=== PATIENT | female | born 1950 | race Caucasian/White ===

== ENCOUNTER 2021-02-22 06:29 | Inpatient (IN) | payer MEDICARE, BC ==
[2021-02-22] MEDS ORDERED: Furosemide 40 MG/4 ML VIAL ONE (06:46)
[2021-02-22 07:37] LABS: #Basophils 0.1 10x3/uL (0.0-0.2); #Eosinphils 0.3 10x3/uL (0.0-0.5); #Monocytes 0.4 10x3/uL (0.0-1.1); #Neutrophils 9.9 10x3/uL (1.5-8.4); %Basophils 0.5 % (0.0-2.0); %Eosinophils 2.2 % (0.0-6.0); %Lymphocytes 8.5 % (18.0-47.0); %Monocytes 3.5 % (0.0-10.0); Hemoglobin 11.4 g/dL (12.0-15.5); Mean Corpuscular HGB CONC 31.9 g/dL (32.0-36.0); Mean Corpuscular Hemoglobin 32.6 pg (27.0-33.0); Mean Platelet Volume 9.8 fl (7.4-10.4); Platelet Count 248 10x3/uL (150-450); RBC Distribution Width 12.8 % (11.5-14.5); White Blood Cell (WBC) Count 11.7 10x3/uL (3.5-10.5)
[2021-02-22 07:46] LABS: Actual Bicarbonate (HCO3a) 25.1 mEq/L (22-28); CO2 Tension 52.7 mmHg (35.0-45.0); Calcium, Ionized (arterial) 1.09 mmol/L (1.12-1.30); Carboxyhemoglobin (COHb) 0.8 gm% (0.0-3.0); Hemoglobin (Hb) 12.4 g/dL (12.0-16.0); Potassium - ABG Lab 4.9 mmol/L (3.70-5.30); Puncture Site Other Site; RapidComm Collect By LAB.
[2021-02-22 07:49] LABS: ALV-art Gradient 616.125 mmHg (0-20)
[2021-02-22 07:55] LABS: ALT (SGPT) 18 U/L (8-55); AST (SGOT) 17 U/L (5-34); Albumin 3.7 g/dL (3.4-4.8); Alkaline Phosphatase 62 U/L (40-110); Anion Gap 21 mmol/L (10-20); BUN (Urea Nitrogen) 43 mg/dL (9.8-20.1); Bilirubin, Total 0.5 mg/dL (0.2-1.2); Calc. Creatinine Clearance 0 mL/min (70-130); Calcium 8.9 mg/dL (7.8-10.44); Carbon Dioxide 23 mmol/L (23-31); Chloride 97 mmol/L (98-107); Globulin 3.1 g/dL (2.4-3.5); Glucose 164 mg/dL (83-110); Protein, Total 6.8 g/dL (5.8-8.1); Sodium 136 mmol/L (136-145)
[2021-02-22 08:21] LABS: CKMB 1.5 ng/mL (0-6.6)
[2021-02-22 08:27] LABS: SARS-CoV-2 NAA Rapid Test Not Detected (NotDetected)
[2021-02-22 11:33] LABS: Hep B Surf Ag Non-Reactive S/CO (NonReactive)
[2021-02-22 11:34] LABS: HBSAg Index 0.65 S/CO (0-0.99)
[2021-02-22] MEDS ORDERED: Ondansetron PF 4 MG/2 ML Vial IVP PRN (11:50)
[2021-02-22 13:15] LABS: CKMB 1.9 ng/mL (0-6.6)
[2021-02-22 16:33] VITALS: BMI 37.8
[2021-02-22] MEDS: Piperacillin/Tazobactam 3.375 GM in Sodium Chloride 0.9% 100 ML IVPB SCH ×2 (18:44→23:51)
[2021-02-22] MEDS: hydrALAZINE 25 MG TAB PO SCH (20:15)
[2021-02-22] MEDS: Flecainide 50 MG TAB PO SCH (20:16)
[2021-02-22] MEDS: Famotidine/PF 20 mg/2ml Vial SLOW IVP SCH (20:19)
[2021-02-22 23:16] LABS: Hep B Core Total Ab Non-Reactive (NonReactive); Hep B Core Total Index 0.12 S/CO (0-0.79); Hep C IgG Ab Non-Reactive (NonReactive); Hep C Index 0.09 S/CO (0-0.79)
[2021-02-22 23:20] LABS: HBSAB Concentration 110.48 mIU/mL; Hep B Surf AB Reactive (NonReactive)
[2021-02-23 05:18] LABS: #Monocytes 0.7 10x3/uL (0.0-1.1); #Neutrophils 7.1 10x3/uL (1.5-8.4); %Basophils 0.1 % (0.0-2.0); %Lymphocytes 8.4 % (18.0-47.0); %Monocytes 8.4 % (0.0-10.0); %Neutrophils 82.9 % (40.0-75.0); Hemoglobin 10.1 g/dL (12.0-15.5); Mean Corpuscular HGB CONC 33.8 g/dL (32.0-36.0); Mean Corpuscular Hemoglobin 33.3 pg (27.0-33.0); Mean Corpuscular Volume 98.7 fl (81.6-98.3); Mean Platelet Volume 10.1 fl (7.4-10.4); Platelet Count 190 10x3/uL (150-450); RBC Distribution Width 12.5 % (11.5-14.5); Red Blood Cell (RBC) Count 3.03 10x6/uL (3.90-5.03); White Blood Cell (WBC) Count 8.6 10x3/uL (3.5-10.5)
[2021-02-23 05:30] LABS: Anion Gap 18 mmol/L (10-20); BUN (Urea Nitrogen) 36 mg/dL (9.8-20.1); Calc. Creatinine Clearance 13 mL/min (70-130); Calcium 8.8 mg/dL (7.8-10.44); Carbon Dioxide 24 mmol/L (23-31); Chloride 97 mmol/L (98-107); Glucose 114 mg/dL (83-110); Potassium 4.4 mmol/L (3.5-5.1); Sodium 135 mmol/L (136-145)
[2021-02-23] MEDS: Piperacillin/Tazobactam 3.375 GM in Sodium Chloride 0.9% 100 ML IVPB SCH ×3 (05:47→18:02)
[2021-02-23] MEDS: Flecainide 50 MG TAB PO SCH ×2 (09:15→20:40)
[2021-02-23] MEDS: Aspirin 81 mg Enteric Coated Tablet PO SCH ×2 (09:16→09:24)
[2021-02-23] MEDS: hydrALAZINE 25 MG TAB PO SCH (09:16)
[2021-02-23] MEDS: Famotidine/PF 20 mg/2ml Vial SLOW IVP SCH ×2 (20:40→22:00)
[2021-02-24] MEDS: Flecainide 50 MG TAB PO SCH ×2 (08:28→20:01)
[2021-02-24] MEDS: Aspirin 81 mg Enteric Coated Tablet PO SCH (08:28)
[2021-02-24] MEDS ORDERED: Calcitriol 0.25 MCG CAP PO SCH (09:00)
[2021-02-24] MEDS: Famotidine/PF 20 mg/2ml Vial SLOW IVP SCH (20:01)
[2021-02-25] MEDS: Aspirin 81 mg Enteric Coated Tablet PO SCH (08:42)
[2021-02-25] MEDS: Flecainide 50 MG TAB PO SCH (08:42)
[2021-02-25 16:06] VITALS: BP 145/79; TEMP 98.1
== END 2021-02-25 18:20 | disposition home or self-care (01) | DRG 314 ==
LOC: CSHERS 06:29 → CSHTELE 11:49 → UNDOADMOB 12:25 → CSHTELE 12:25 → INTOOBSV 12:25 → OBSVTOIN 02-24 09:32
PROVIDERS: ADMIT Internal Medicine; ATTEND Internal Medicine
PROC: 5A1D70Z Performance of Urinary Filtration, Intermittent, Less than 6 Hours Per Day (ICD-10-PCS; principal; 2021-02-24)
DX: T82.897A Other specified complication of cardiac prosthetic devices, implants and grafts, initial encounter (principal); N18.6 End stage renal disease; J96.01 Acute respiratory failure with hypoxia; I50.43 Acute on chronic combined systolic (congestive) and diastolic (congestive) heart failure; I13.2 Hypertensive heart and chronic kidney disease with heart failure and with stage 5 chronic kidney disease, or end stage renal disease; Q61.3 Polycystic kidney, unspecified; Z20.822 Contact with and (suspected) exposure to COVID-19; I70.1 Atherosclerosis of renal artery; I48.0 Paroxysmal atrial fibrillation; I44.7 Left bundle-branch block, unspecified; E87.5 Hyperkalemia; E78.2 Mixed hyperlipidemia; E66.9 Obesity, unspecified; I25.118 Atherosclerotic heart disease of native coronary artery with other forms of angina pectoris; Z99.2 Dependence on renal dialysis; Z90.49 Acquired absence of other specified parts of digestive tract; Z79.01 Long term (current) use of anticoagulants; Z79.82 Long term (current) use of aspirin; Z79.899 Other long term (current) drug therapy; Z95.810 Presence of automatic (implantable) cardiac defibrillator; Z88.2 Allergy status to sulfonamides; Z88.8 Allergy status to other drugs, medicaments and biological substances; Z88.1 Allergy status to other antibiotic agents; Z91.040 Latex allergy status; Z88.5 Allergy status to narcotic agent
CPT/HCPCS: 0240U; 36415; 71045; 80048; 80053; 82553; 82805; 83880; 84484; 85025; 86704; 86706; 86803; 87040; 87340; 90935; 93005; 94760; 96374; 96375; 96376; G0257; G0378; J1940; J2543; J3490; S0028

== ENCOUNTER 2021-06-07 21:24 | Emergency (ER) | payer MEDICARE, BC ==
[2021-06-07 22:09] LABS: #Basophils 0.1 10x3/uL (0.0-0.2); #Eosinphils 0.4 10x3/uL (0.0-0.5); #Monocytes 0.8 10x3/uL (0.0-1.1); #Neutrophils 3.7 10x3/uL (1.5-8.4); %Basophils 1.3 % (0.0-2.0); %Eosinophils 6.4 % (0.0-6.0); %Monocytes 11.8 % (0.0-10.0); %Neutrophils 58.2 % (40.0-75.0); Hemoglobin 11.4 g/dL (12.0-15.5); Mean Corpuscular HGB CONC 33.8 g/dL (32.0-36.0); Mean Corpuscular Hemoglobin 32.7 pg (27.0-33.0); Mean Corpuscular Volume 96.6 fl (81.6-98.3); Platelet Count 214 10x3/uL (150-450); RBC Distribution Width 12.5 % (11.5-14.5); Red Blood Cell (RBC) Count 3.49 10x6/uL (3.90-5.03); White Blood Cell (WBC) Count 6.4 10x3/uL (3.5-10.5)
[2021-06-07 22:21] LABS: ALT (SGPT) 9 U/L (8-55); AST (SGOT) 16 U/L (5-34); Alkaline Phosphatase 88 U/L (40-110); Anion Gap 18 mmol/L (10-20); BUN (Urea Nitrogen) 27 mg/dL (9.8-20.1); Bilirubin, Total 0.5 mg/dL (0.2-1.2); Calc. Creatinine Clearance 0 mL/min (70-130); Calcium 9.6 mg/dL (7.8-10.44); Carbon Dioxide 28 mmol/L (23-31); Chloride 99 mmol/L (98-107); Globulin 3.4 g/dL (2.4-3.5); Glucose 131 mg/dL (83-110); Potassium 3.7 mmol/L (3.5-5.1); Protein, Total 7.4 g/dL (5.8-8.1); Sodium 141 mmol/L (136-145)
[2021-06-07 22:44] LABS: CKMB 2.1 ng/mL (0-6.6)
== END 2021-06-07 23:39 | disposition home or self-care (01) ==
LOC: CSHERS 21:24
DX: I48.91 Unspecified atrial fibrillation (principal); I13.2 Hypertensive heart and chronic kidney disease with heart failure and with stage 5 chronic kidney disease, or end stage renal disease; N18.6 End stage renal disease; I50.9 Heart failure, unspecified; Z79.899 Other long term (current) drug therapy; Z79.82 Long term (current) use of aspirin
CPT/HCPCS: 71045; 80053; 82553; 84484; 85025; 93005

== ENCOUNTER 2021-06-30 05:45 | Inpatient (IN) | payer MEDICARE, BC ==
[2021-06-30] MEDS ORDERED: Nitroglycerin 50 MG/250 ML BOT 250 ML ONE (05:56)
[2021-06-30] MEDS ORDERED: Furosemide 40 MG/4 ML VIAL ONE (06:02)
[2021-06-30 06:18] LABS: #Basophils 0.1 10x3/uL (0.0-0.2); #Eosinphils 0.5 10x3/uL (0.0-0.5); #Monocytes 0.7 10x3/uL (0.0-1.1); #Neutrophils 5.7 10x3/uL (1.5-8.4); %Basophils 1.2 % (0.0-2.0); %Eosinophils 5.3 % (0.0-6.0); %Lymphocytes 23.5 % (18.0-47.0); %Monocytes 7.6 % (0.0-10.0); %Neutrophils 62.1 % (40.0-75.0); Hemoglobin 11.7 g/dL (12.0-15.5); Mean Corpuscular HGB CONC 31.7 g/dL (32.0-36.0); Mean Corpuscular Hemoglobin 32.1 pg (27.0-33.0); Mean Corpuscular Volume 101.1 fl (81.6-98.3); Mean Platelet Volume 10.4 fl (7.4-10.4); Platelet Count 271 10x3/uL (150-450); RBC Distribution Width 12.4 % (11.5-14.5); Red Blood Cell (RBC) Count 3.65 10x6/uL (3.90-5.03); White Blood Cell (WBC) Count 9.2 10x3/uL (3.5-10.5)
[2021-06-30 07:15] LABS: ALT (SGPT) 28 U/L (8-55); AST (SGOT) 34 U/L (5-34); Albumin 3.8 g/dL (3.4-4.8); Alkaline Phosphatase 87 U/L (40-110); Anion Gap 20 mmol/L (10-20); BUN (Urea Nitrogen) 45 mg/dL (9.8-20.1); Bilirubin, Total 0.6 mg/dL (0.2-1.2); Calc. Creatinine Clearance 0 mL/min (70-130); Calcium 9.4 mg/dL (7.8-10.44); Carbon Dioxide 20 mmol/L (23-31); Chloride 103 mmol/L (98-107); Globulin 3.9 g/dL (2.4-3.5); Glucose 167 mg/dL (83-110); Potassium 4.8 mmol/L (3.5-5.1); Protein, Total 7.7 g/dL (5.8-8.1); Sodium 138 mmol/L (136-145)
[2021-06-30] MEDS ORDERED: Nitroglycerin 2% Ointment 1 INCH/1 GM Packet ONE (07:26)
[2021-06-30 08:39] LABS: SARS-CoV-2 NAA Rapid Test Not Detected (NotDetected)
[2021-06-30] MEDS ORDERED: Heparin 10,000 UNITS/ 10 ML VIAL SLOW IVP PRN (16:07)
[2021-06-30] MEDS ORDERED: Heparin 5,000 UNITS/ML VIAL SC SCH (21:00)
[2021-06-30] MEDS ORDERED: Flecainide 50 MG TAB PO SCH (21:00)
[2021-06-30] MEDS: Apixaban 2.5 MG TAB PO SCH (22:47)
[2021-06-30] MEDS: Sacubitril 49 MG/Valsartan 51 MG TABLET PO SCH (22:59)
[2021-07-01 06:19] LABS: #Basophils 0.1 10x3/uL (0.0-0.2); #Eosinphils 0.3 10x3/uL (0.0-0.5); #Monocytes 0.7 10x3/uL (0.0-1.1); #Neutrophils 3.1 10x3/uL (1.5-8.4); %Eosinophils 4.8 % (0.0-6.0); %Lymphocytes 21.6 % (18.0-47.0); %Monocytes 12.5 % (0.0-10.0); %Neutrophils 59.9 % (40.0-75.0); Mean Corpuscular HGB CONC 32.3 g/dL (32.0-36.0); Mean Corpuscular Hemoglobin 32.3 pg (27.0-33.0); Mean Platelet Volume 10.5 fl (7.4-10.4); Platelet Count 205 10x3/uL (150-450); RBC Distribution Width 12.3 % (11.5-14.5); White Blood Cell (WBC) Count 5.2 10x3/uL (3.5-10.5)
[2021-07-01 06:37] LABS: Anion Gap 14 mmol/L (10-20); BUN (Urea Nitrogen) 31 mg/dL (9.8-20.1); Calc. Creatinine Clearance 0 mL/min (70-130); Calcium 9.3 mg/dL (7.8-10.44); Carbon Dioxide 28 mmol/L (23-31); Chloride 101 mmol/L (98-107); Glucose 84 mg/dL (83-110); Potassium 4.4 mmol/L (3.5-5.1); Sodium 139 mmol/L (136-145)
[2021-07-01 08:04] VITALS: BMI 38.2
[2021-07-01] MEDS ORDERED: Torsemide 100 MG TAB PO SCH (09:00)
[2021-07-01] MEDS: Sacubitril 49 MG/Valsartan 51 MG TABLET PO SCH (10:01)
[2021-07-01] MEDS: Apixaban 2.5 MG TAB PO SCH ×2 (10:02→11:43)
[2021-07-01] MEDS: Aspirin 81 mg Enteric Coated Tablet PO SCH ×2 (10:02→10:27)
[2021-07-01] MEDS: Flecainide 50 MG TAB PO SCH ×2 (10:02→15:39)
[2021-07-01] MEDS ORDERED: Apixaban 2.5 MG TAB PO SCH ×2 (11:45→21:00)
[2021-07-01 17:31] VITALS: BP 159/77; TEMP 98.4
== END 2021-07-01 18:46 | disposition home or self-care (01) | DRG 291 ==
LOC: CSHERS 05:45 → CSHERHOLD 09:32 → CSHTELE 22:33
PROVIDERS: ADMIT Family Medicine; ATTEND Internal Medicine
DX: I13.2 Hypertensive heart and chronic kidney disease with heart failure and with stage 5 chronic kidney disease, or end stage renal disease (principal); N18.6 End stage renal disease; I50.23 Acute on chronic systolic (congestive) heart failure; J96.01 Acute respiratory failure with hypoxia; Z99.2 Dependence on renal dialysis; Z95.810 Presence of automatic (implantable) cardiac defibrillator; D63.1 Anemia in chronic kidney disease; E78.5 Hyperlipidemia, unspecified; Z88.5 Allergy status to narcotic agent; Z88.8 Allergy status to other drugs, medicaments and biological substances; Z88.6 Allergy status to analgesic agent; Z91.040 Latex allergy status; I48.0 Paroxysmal atrial fibrillation; I25.5 Ischemic cardiomyopathy; I25.10 Atherosclerotic heart disease of native coronary artery without angina pectoris; I70.1 Atherosclerosis of renal artery; I44.7 Left bundle-branch block, unspecified; E87.5 Hyperkalemia; E66.9 Obesity, unspecified; Z68.38 Body mass index [BMI] 38.0-38.9, adult; Z20.822 Contact with and (suspected) exposure to COVID-19
CPT/HCPCS: 36415; 71045; 80048; 80053; 82553; 83735; 83880; 84484; 85025; 90935; 93005; 94660; 94760; 96365; 96366; 96375; G0257; J1644; J1940; U0002

== ENCOUNTER 2021-07-05 03:13 | Inpatient (IN) | payer MEDICARE, BC ==
[2021-07-05] MEDS ORDERED: niCARdipine 20MG In NaCl 0 MG/0 ML BAG ONE (04:39)
[2021-07-05] MEDS ORDERED: Furosemide 40 MG/4 ML VIAL ONE (04:39)
[2021-07-05 04:42] LABS: #Basophils 0.1 10x3/uL (0.0-0.2); #Eosinphils 0.3 10x3/uL (0.0-0.5); #Monocytes 0.6 10x3/uL (0.0-1.1); #Neutrophils 9.8 10x3/uL (1.5-8.4); %Basophils 0.6 % (0.0-2.0); %Eosinophils 2.3 % (0.0-6.0); %Lymphocytes 9.2 % (18.0-47.0); %Neutrophils 82.1 % (40.0-75.0); Hemoglobin 11.2 g/dL (12.0-15.5); Mean Corpuscular HGB CONC 31.8 g/dL (32.0-36.0); Mean Corpuscular Hemoglobin 32.7 pg (27.0-33.0); Mean Corpuscular Volume 102.6 fl (81.6-98.3); Mean Platelet Volume 10.4 fl (7.4-10.4); Platelet Count 271 10x3/uL (150-450); RBC Distribution Width 12.6 % (11.5-14.5); Red Blood Cell (RBC) Count 3.43 10x6/uL (3.90-5.03); White Blood Cell (WBC) Count 11.9 10x3/uL (3.5-10.5)
[2021-07-05 05:16] LABS: CKMB 1.4 ng/mL (0-6.6)
[2021-07-05 05:32] LABS: ALT (SGPT) 58 U/L (8-55); AST (SGOT) 70 U/L (5-34); Albumin 3.7 g/dL (3.4-4.8); Alkaline Phosphatase 97 U/L (40-110); Anion Gap 19 mmol/L (10-20); BUN (Urea Nitrogen) 51 mg/dL (9.8-20.1); Bilirubin, Total 0.5 mg/dL (0.2-1.2); Calc. Creatinine Clearance 0 mL/min (70-130); Calcium 9.6 mg/dL (7.8-10.44); Carbon Dioxide 22 mmol/L (23-31); Chloride 104 mmol/L (98-107); Globulin 3.6 g/dL (2.4-3.5); Glucose 96 mg/dL (83-110); Potassium 4.5 mmol/L (3.5-5.1); Protein, Total 7.3 g/dL (5.8-8.1); Sodium 140 mmol/L (136-145)
[2021-07-05 05:36] LABS: SARS-CoV-2 NAA Rapid Test Not Detected (NotDetected)
[2021-07-05] MEDS ORDERED: Senokot S 8.6-50 MG TAB PO PRN (07:16)
[2021-07-05] MEDS ORDERED: Ondansetron ODT 4 MG TAB PO PRN (07:16)
[2021-07-05] MEDS ORDERED: niCARdipine 20MG In NaCl 20 MG/200 ML BAG ONE (08:17)
[2021-07-05] MEDS ORDERED: Heparin 10,000 UNITS/ 10 ML VIAL FS SCH (10:15)
[2021-07-05] MEDS ORDERED: Heparin 1,000 UNITS/ML VIAL FS SCH (11:00)
[2021-07-05] MEDS ORDERED: Apixaban 5 MG TAB PO SCH (13:30)
[2021-07-05] MEDS ORDERED: Sacubitril 49 MG/Valsartan 51 MG TABLET PO SCH (13:30)
[2021-07-05] MEDS ORDERED: Calcitriol 0.25 MCG CAP PO SCH (13:30)
[2021-07-05] MEDS ORDERED: Apixaban 5 MG TAB ONE (13:57)
[2021-07-05] MEDS ORDERED: Metoprolol Tartrate 50 MG TAB ONE (13:58)
[2021-07-05] MEDS ORDERED: Famotidine 20 MG TAB ONE (13:59)
[2021-07-05 15:42] VITALS: BMI 37.8
[2021-07-05] MEDS: Famotidine 20 MG TAB PO SCH (17:04)
[2021-07-05] MEDS: Torsemide 100 MG TAB PO SCH (17:04)
[2021-07-05] MEDS: Flecainide 50 MG TAB PO SCH ×3 (17:04→22:39)
[2021-07-05] MEDS: Sacubitril 49 MG/Valsartan 51 MG TABLET PO SCH (22:36)
[2021-07-05] MEDS: Apixaban 5 MG TAB PO SCH (22:36)
[2021-07-06 06:44] LABS: #Basophils 0.1 10x3/uL (0.0-0.2); #Eosinphils 0.3 10x3/uL (0.0-0.5); #Monocytes 0.6 10x3/uL (0.0-1.1); #Neutrophils 3.3 10x3/uL (1.5-8.4); %Basophils 1.1 % (0.0-2.0); %Eosinophils 5.4 % (0.0-6.0); %Lymphocytes 22.3 % (18.0-47.0); %Neutrophils 59.7 % (40.0-75.0); Hemoglobin 9.7 g/dL (12.0-15.5); Mean Corpuscular HGB CONC 32.3 g/dL (32.0-36.0); Mean Corpuscular Hemoglobin 32.4 pg (27.0-33.0); Mean Corpuscular Volume 100.3 fl (81.6-98.3); Mean Platelet Volume 10.6 fl (7.4-10.4); Platelet Count 191 10x3/uL (150-450); RBC Distribution Width 12.5 % (11.5-14.5); Red Blood Cell (RBC) Count 2.99 10x6/uL (3.90-5.03); White Blood Cell (WBC) Count 5.6 10x3/uL (3.5-10.5)
[2021-07-06 06:56] LABS: Albumin 3.3 g/dL (3.4-4.8); Anion Gap 16 mmol/L (10-20); BUN (Urea Nitrogen) 38 mg/dL (9.8-20.1); BUN/Creatinine Ratio 5.24; Calc. Creatinine Clearance 11 mL/min (70-130); Calcium 9.2 mg/dL (7.8-10.44); Carbon Dioxide 24 mmol/L (23-31); Chloride 103 mmol/L (98-107); Glucose 92 mg/dL (83-110); Phosphorus 5.2 mg/dL (2.3-4.7); Potassium 4.4 mmol/L (3.5-5.1); Sodium 139 mmol/L (136-145)
[2021-07-06] MEDS ORDERED: NIFEdipine XL 30 MG TAB PO SCH (09:00)
[2021-07-06] MEDS: Famotidine 20 MG TAB PO SCH (09:30)
[2021-07-06] MEDS: Apixaban 5 MG TAB PO SCH ×2 (09:30→22:33)
[2021-07-06] MEDS: Flecainide 50 MG TAB PO SCH ×3 (09:30→22:34)
[2021-07-06] MEDS: Sacubitril 49 MG/Valsartan 51 MG TABLET PO SCH ×2 (11:19→22:34)
[2021-07-06] MEDS: Torsemide 100 MG TAB PO SCH (11:19)
[2021-07-06] MEDS ORDERED: Labetalol HCl 100 MG/20 ML VIAL SLOW IVP PRN (17:13)
[2021-07-06] MEDS ORDERED: hydrALAZINE 20 MG/ML VIAL SLOW IVP PRN (17:13)
[2021-07-07] MEDS ORDERED: Heparin 10,000 UNITS/ 10 ML VIAL SLOW IVP PRN (07:30)
[2021-07-07] MEDS: Sacubitril 49 MG/Valsartan 51 MG TABLET PO SCH ×2 (08:23→21:12)
[2021-07-07] MEDS: Calcitriol 0.25 MCG CAP PO SCH (08:23)
[2021-07-07] MEDS: Flecainide 50 MG TAB PO SCH ×3 (08:24→21:17)
[2021-07-07] MEDS: Apixaban 5 MG TAB PO SCH ×2 (08:24→21:08)
[2021-07-07] MEDS: Famotidine 20 MG TAB PO SCH (08:24)
[2021-07-07] MEDS: Torsemide 100 MG TAB PO SCH (08:24)
[2021-07-07 08:56] LABS: Albumin 3.2 g/dL (3.4-4.8); Anion Gap 16 mmol/L (10-20); BUN (Urea Nitrogen) 51 mg/dL (9.8-20.1); BUN/Creatinine Ratio 5.97; Calc. Creatinine Clearance 10 mL/min (70-130); Calcium 9.2 mg/dL (7.8-10.44); Carbon Dioxide 24 mmol/L (23-31); Chloride 102 mmol/L (98-107); Glucose 89 mg/dL (83-110); Potassium 4.8 mmol/L (3.5-5.1); Sodium 137 mmol/L (136-145)
[2021-07-07] MEDS ORDERED: hydrALAZINE 20 MG/ML VIAL SLOW IVP PRN (19:05)
[2021-07-07] MEDS ORDERED: Labetalol HCl 100 MG/20 ML VIAL SLOW IVP PRN (19:06)
[2021-07-08] MEDS: Apixaban 5 MG TAB PO SCH ×2 (08:41→21:21)
[2021-07-08] MEDS: Famotidine 20 MG TAB PO SCH ×2 (08:41→08:54)
[2021-07-08] MEDS: Flecainide 50 MG TAB PO SCH ×3 (08:42→21:22)
[2021-07-08] MEDS: Torsemide 100 MG TAB PO SCH (08:42)
[2021-07-08] MEDS: Sacubitril 49 MG/Valsartan 51 MG TABLET PO SCH ×2 (08:42→21:23)
[2021-07-08] MEDS: Spironolactone 25 MG TAB PO SCH (08:47)
[2021-07-09 00:36] LABS: Renin Activity 0.339 ng/mL/hr (0.167-5.380)
[2021-07-09 05:22] VITALS: TEMP 98.2
[2021-07-09 08:09] VITALS: BP 156/80
[2021-07-09 09:46] LABS: Albumin 3.4 g/dL (3.4-4.8); Anion Gap 16 mmol/L (10-20); BUN (Urea Nitrogen) 44 mg/dL (9.8-20.1); BUN/Creatinine Ratio 5.59; Calc. Creatinine Clearance 11 mL/min (70-130); Calcium 9.5 mg/dL (7.8-10.44); Carbon Dioxide 24 mmol/L (23-31); Chloride 101 mmol/L (98-107); Glucose 98 mg/dL (83-110); Phosphorus 5.9 mg/dL (2.3-4.7); Potassium 4.7 mmol/L (3.5-5.1); Sodium 136 mmol/L (136-145)
[2021-07-09] MEDS: Famotidine 20 MG TAB PO SCH ×2 (10:09→10:11)
[2021-07-09] MEDS: Sacubitril 49 MG/Valsartan 51 MG TABLET PO SCH (10:09)
[2021-07-09] MEDS: Torsemide 100 MG TAB PO SCH (10:09)
[2021-07-09] MEDS: Apixaban 5 MG TAB PO SCH (10:09)
[2021-07-09] MEDS: Calcitriol 0.25 MCG CAP PO SCH (10:09)
[2021-07-09] MEDS: Spironolactone 25 MG TAB PO SCH (10:09)
[2021-07-09] MEDS: Flecainide 50 MG TAB PO SCH (10:09)
[2021-07-10 05:37] LABS: Dopamine Less than 30 pg/mL (0-48); Epinephrine 45 pg/mL (0-62); Norepinephrine 635 pg/mL (0-874)
[2021-07-19 00:35] LABS: Metanephrine,Plasma 32.3 pg/mL (0.0-88.0); Normetanephrine,Pl 112.6 pg/mL (0.0-191.8)
== END 2021-07-09 15:31 | disposition home or self-care (01) | DRG 291 ==
LOC: SUATTDRO 03:13 → CSHERS 03:13 → INTOOBSV 14:48 → CSHTELE 14:48 → OBSVTOIN 07-07 16:26
PROVIDERS: ADMIT Family Medicine; ATTEND Internal Medicine
PROC: 5A1D70Z Performance of Urinary Filtration, Intermittent, Less than 6 Hours Per Day (ICD-10-PCS; principal; 2021-07-07)
PROC: 5A09357 Assistance with Respiratory Ventilation, Less than 24 Consecutive Hours, Continuous Positive Airway Pressure (ICD-10-PCS; 2021-07-07)
DX: I13.2 Hypertensive heart and chronic kidney disease with heart failure and with stage 5 chronic kidney disease, or end stage renal disease (principal); N18.6 End stage renal disease; J96.01 Acute respiratory failure with hypoxia; I50.43 Acute on chronic combined systolic (congestive) and diastolic (congestive) heart failure; I16.1 Hypertensive emergency; Z99.2 Dependence on renal dialysis; E78.5 Hyperlipidemia, unspecified; Z90.49 Acquired absence of other specified parts of digestive tract; Z20.822 Contact with and (suspected) exposure to COVID-19; D63.1 Anemia in chronic kidney disease; E78.2 Mixed hyperlipidemia; I48.0 Paroxysmal atrial fibrillation; I25.10 Atherosclerotic heart disease of native coronary artery without angina pectoris; Z95.810 Presence of automatic (implantable) cardiac defibrillator; Z88.5 Allergy status to narcotic agent; Z88.2 Allergy status to sulfonamides; Z88.1 Allergy status to other antibiotic agents; Z91.040 Latex allergy status; Z79.01 Long term (current) use of anticoagulants; Z79.899 Other long term (current) drug therapy
CPT/HCPCS: 36415; 71045; 80053; 80069; 82088; 82384; 82553; 82570; 83835; 83880; 84244; 84484; 85025; 90935; 93005; 94660; 94760; 96365; 96366; 96375; 99292; G0257; G0378; J1644; J1940; U0002